=== PATIENT | male | born 1970 | race Caucasian/White ===

== ENCOUNTER 2022-10-19 02:30 | Emergency (ER) | payer OTHER, SELFPAY ==
[2022-10-19] VITALS (8 sets, daily range): BP systolic 141–172; BP diastolic 83–99; PULSE 73–98; RESP 18–20; TEMP 36.4; O2SAT 93–97
--- NOTE | 2022-10-19 03:16 | ED_ITS ---
HPI - SOB/Dyspnea General Time Seen by Provider: 03:16 Date Seen: 10/19/22 Chief Complaint: Shortness of Breath/Dyspnea Stated Complaint: pneumonia + shortness of breath Time Seen by Provider: 10/19/22 03:16 Source: patient, family, RN notes reviewed and old records reviewed Mode of arrival: ambulatory Limitations: no limitations History of Present Illness HPI Narrative: Red is a very pleasant 51-year-old gentleman with a history of hyperlipidemia, hypertension and to type 2 diabetes who comes to the emergency room for worsening symptoms. Patient initially seen on October 16 at [facility] with sore throat, runny nose and a cough. He was in day 7 of symptoms that he described as a cold. Two days prior to being seen he had increasing symptoms and not feeling well. He had expected to be diagnosed with strep throat when seen at urgent care but strep and COVID and influenza tests were negative. Patient was noted to have a clinical diagnosis of pneumonia placed on doxycycline and prednisone. He notes that he never had any improvement and last evening, approximately 8 hours ago began developing a fever up to 101. He had taken some Tylenol and ibuprofen-last dose of ibuprofen at approximately 2200 hours. He notes that he is feeling worse in terms of his breathing. He states that his sore throat now comes in goes. He notes he has not slept since starting the steroid. He has not used steroids in the past. He is stating that he is very shaky and now his stomach is also upset. He notes that he has had some chest pain in the past and always attributed this to ?a bad shoulder. He has been icing his shoulders. This is on both sides of his upper chest. He has a remote history of chest pain in 2009 but then successfully passed a stress test after that. Patient noted to be very active over the summer and has had a significant purposeful weight loss. He notes that COVID in August was something that has stopped him from being as active. He and his described 1 month of low- grade temperatures. Tonight patient denies history of DVT, calf tenderness, fluid retention, vomiting. He has had diarrhea. Related Data Previous Rx's Medication Instructions Recorded doxycycline hyclate 100 mg tablet 100 mg PO BID 5 days #10 tabs 10/16/22 prednisone 20 mg tablet 40 mg PO QDAY 5 days #10 tabs 01/06/23 Allergies Allergy/AdvReac Type Severity Reaction Status Date / Time No Known Drug Allergies Allergy Verified 10/16/22 13:19 Review of Systems Status of ROS: Reports: 10 or more systems reviewed and unremarkable except as noted in History and below Const: Reports: fever, chills and fatigue Eyes: Denies: change in vision ENMT: Reports: throat pain; Denies: neck pain, throat swelling or hoarseness Cardio: Reports: chest pain and shortness of breath with exertion; Denies: palpitations, edema or swelling of feet/ankles Resp: Reports: shortness of breath and cough; Denies: wheezing GI: Reports: abdominal pain, nausea and diarrhea; Denies: vomiting or blood in stool : Denies: painful urination or urinary frequency Musculo: Denies: neck pain Integ/Breast: Denies: rash Neuro: Denies: headache Psych: Reports: anxiety Endo: Reports: fatigue Allergy/Immuno: Denies: throat swelling or wheezing PFSH PFSH Social History Smoking Status: Never smoker Do you use any of these nicotine containing products: None Second hand tobacco smoke exposure: No How often do you have a drink containing alcohol: 2-3 times a week How many standard drinks containing alcohol do you have on a typical day: 1 or 2 How often do you have six or more drinks on one occasion: Never AUDIT-C Alcohol total score: 3 Non-prescribed substance use: denies use service: No Exam Narrative: Exam Narrative: Karen is alert and oriented. He is nontoxic in appearance. GCS 15. Eyes are clear. TMs bilaterally without erythema. Oral cavity visualized with no erythema or exudate in the posterior oropharynx. No lymphadenopathy noted. No trismus. Heart with a regular rate and rhythm. No additional heart sounds noted. Lungs are clear in all lung zhu although there may be decreased breath sounds in the right lower field. Abdomen is obese soft there is no tenderness or pulsating mass. Pedal pulses are intact and symmetrical. No calf tenderness unusual edema and Homans sign is negative. Skin is without evidence of rash. Dried skin that is flaking noted in external ear canal. Const: Vital Signs, click to edit/add: Vital Signs - 24 hr 10/19/22 02:38 10/19/22 02:45 10/19/22 03:30 Temperature 97.5 F L Pulse Rate [Left P ulse Oximeter] 98 97 79 Respiratory Rate 20 20 20 Blood Pressure [Le ft Upper Arm] 156/90 H Blood Pressure [Ri ght Upper Arm] 172/97 H 168/87 H Pulse Oximetry 97 97 95 Oxygen Delivery Me thod Room Air Room Air Room Air 10/19/22 04:00 10/19/22 05:00 10/19/22 05:30 Temperature Pulse Rate [Left P ulse Oximeter] 87 73 75 Respiratory Rate 20 20 18 Blood Pressure [Le ft Upper Arm] 142/83 H 148/94 H 148/90 H Blood Pressure [Ri ght Upper Arm] Pulse Oximetry 95 93 97 Oxygen Delivery Me thod Room Air Room Air Room Air Documenting provider has reviewed patient's vital signs: yes Course Course Hospital Course: Differential diagnosis includes but is not limited to drug reaction, influenza, COVID, RSV, other viral infection, pneumonia, PE, gastritis., acute coronary event, pericarditis. Patient will have IV placed, blood drawn with labs ordered to include CBC, comprehensive panel, CRP, D-dimer, troponin. Will get an EKG as well as chest x-ray. Patient will receive 500 mL normal saline, Toradol 15 mg IV, Ativan 0.5 mg IV. Reevaluation(s) Reevaluation #1: Patient noted to be feeling somewhat improved. We did see that sodium was 122 and patient did receive additional 500 mL of normal saline. We have also given him 50 mEq of p.o. potassium as well as Pedialyte. D-dimer significantly elevated greater than 1 and patient does agree to CT of the chest and abdomen. Vital Signs Vital signs: Initial Vital Signs Temperature 97.5 F L 10/19/22 02:38 Temperature Source Temporal Artery Scan 10/19/22 02:38 Pulse Rate 98 10/19/22 02:38 Pulse Rhythm 10/19/22 02:38 Respiratory Rate 20 10/19/22 02:38 Blood Pressure 172/97 H 10/19/22 02:38 Blood Pressure Mean 122 10/19/22 02:38 Blood Pressure Position Semi-Fowlers 10/19/22 02:38 Pulse Oximetry 97 10/19/22 02:38 Oxygen Delivery Method 10/19/22 02:38 Vital Signs Temperature 97.5 F L 10/19/22 02:38 Pulse Rate 98 10/19/22 02:38 Respiratory Rate 20 10/19/22 02:38 Blood Pressure 172/97 H 10/19/22 02:38 Pulse Oximetry 97 10/19/22 02:38 Oxygen Delivery Method 10/19/22 02:38 Temperature 97.5 F L 10/19/22 02:38 Pulse Rate 75 10/19/22 05:30 Respiratory Rate 18 10/19/22 05:30 Blood Pressure 148/90 H 10/19/22 05:30 Pulse Oximetry 97 10/19/22 05:30 Oxygen Delivery Method 10/19/22 05:30 MDM - SOB/Dyspnea MDM Narrative Medical decision making narrative: 1. RSV-no evidence of pneumonia. Patient is with appropriate oxygen saturations. This is likely the cause of fever and cough. Symptomatic cares at this time. Patient may discontinue doxycycline and prednisone. He had no evidence of wheezing on exam. 2. Hypokalemia -mild. 3.2. Will replace with 50 mEq of p.o. potassium. Recheck is 4.4. 3. Hyponatremia-moderate at 122. Patient reports pushing fluids over the past few days. I assume that this is an acute processes I have no other history noted in chart of hyponatremia. Patient given 1 L of normal saline. Patient given Pedialyte at this time. Recheck is 124. Certainly this is near needing hospitalization but patient has really no symptoms of this. This shaking he initially exhibited has resolved and he states he is feeling much better and blames his anxiety for feeling that way. He has no headache and has been able to drink without difficulty. At this point he is heading in the right direction. He will limit any free water, liberally salt his food, and use electrolyte juices. He will recheck his sodium tomorrow at the [facility]. If they are unable to do this for him he will return to the emergency room for recheck. 2. Chest pain-EKG and normal troponin x2 very reassuring. 3. Abdominal pain-no palpable abdominal pain on exam. I think this is likely attributable to doxycycline and or prednisone. 4. Disposition-home. Return for onset of new symptoms or worsening symptoms. Follow up at [facility] tomorrow for recheck of sodium. Follow-up on Wednesday as previously scheduled with Dr. Mooney. There is also the issue of portal hypertension with cirrhosis of the liver. Outpatient MRI is recommended for further evaluation. A copy of the patient's CT was sent with him. Medical Records Attestation: I reviewed the patient's medical records. Lab Data Attestation: I reviewed the patient's lab results. Labs: Lab Results 10/19/22 10/19/22 10/19/22 Range/Units 03:00 03:00 03:00 WBC 6.68 (4.50-11.00) K/uL RBC 4.71 (4.30-5.90) m/uL Hgb 12.6 L (13.5-17.5) gm/dL Hct 36.5 L (37.0-53.0) % MCV 78 L (80-100) fL MCH 27 (26-34) pg MCHC 35 (32-36) gm/dL RDW Coeff of [place] 15.8 H (11.5-15.5) % Plt Count 222 (140-440) K/uL Neut % (Auto) 61.3 (42.0-72.0) % Lymph % (Auto) 25.9 (20-44) % [place] % (Auto) 10.9 (0.0-11.0) % Eos % (Auto) 0.3 (0.0-7.0) % Baso % (Auto) 0.6 (0.0-3.0) % Neut # (Auto) 4.09 (1.7-7.0) K/uL Lymph # (Auto) 1.73 (0.90-2.90) K/uL [place] # (Auto) 0.70 (0.00-0.90) K/UL Eos # (Auto) 0.02 (0.00-0.50) K/uL Baso # (Auto) 0.04 (0.00-0.30) K/uL D-Dimer Quant (PE/DVT) 1.43 H (0.00-0.50) ug/ml Sodium 122 L* (135-149) mmol/L Potassium 3.2 L (3.6-5.1) mmol/L Chloride 86 L (96-114) mmol/L Carbon Dioxide 23 (20-32) mmol/L BUN 7 (5-24) mg/dL Creatinine 0.6 (0.5-1.5) mg/dL Estimated GFR 118 ml/min Glucose 165 H (60-115) mg/dL Calcium 8.8 (8.4-10.6) mg/dL Total Bilirubin 1.1 (0.1-1.5) mg/dL AST 115 H (12-35) U/L ALT 98 H (4-50) U/L Alkaline Phosphatase 90 (40-150) U/L Troponin I (0.01-0.04) ng/mL C-Reactive Protein < 0.5 L (0.5-1.0) mg/dL Total Protein 7.7 (6.0-8.3) g/dL Albumin 4.2 (3.3-5.0) g/dL SARS-CoV-2 (PCR) (Negative) Influenza Type A (PCR) (Negative) Influenza Type B (PCR) (Negative) RSV (PCR) (Negative) POC Troponin I (0.01-0.04) ng/ml 10/19/22 10/19/22 10/19/22 Range/Units 03:00 03:45 04:42 WBC (4.50-11.00) K/uL RBC (4.30-5.90) m/uL Hgb (13.5-17.5) gm/dL Hct (37.0-53.0) % MCV (80-100) fL MCH (26-34) pg MCHC (32-36) gm/dL RDW Coeff of Catr[place] (11.5-15.5) % Plt Count (140-440) K/uL Neut % (Auto) (42.0-72.0) % Lymph % (Auto) (20-44) % [place] % (Auto) (0.0-11.0) % Eos % (Auto) (0.0-7.0) % Baso % (Auto) (0.0-3.0) % Neut # (Auto) (1.7-7.0) K/uL Lymph # (Auto) (0.90-2.90) K/uL [place] # (Auto) (0.00-0.90) K/UL Eos # (Auto) (0.00-0.50) K/uL Baso # (Auto) (0.00-0.30) K/uL D-Dimer Quant (PE/DVT) (0.00-0.50) ug/ml Sodium (135-149) mmol/L Potassium (3.6-5.1) mmol/L Chloride (96-114) mmol/L Carbon Dioxide (20-32) mmol/L BUN (5-24) mg/dL Creatinine (0.5-1.5) mg/dL Estimated GFR ml/min Glucose (60-115) mg/dL Calcium (8.4-10.6) mg/dL Total Bilirubin (0.1-1.5) mg/dL AST (12-35) U/L ALT (4-50) U/L Alkaline Phosphatase (40-150) U/L Troponin I < 0.01 L (0.01-0.04) ng/mL C-Reactive Protein (0.5-1.0) mg/dL Total Protein (6.0-8.3) g/dL Albumin (3.3-5.0) g/dL SARS-CoV-2 (PCR) Negative SARS-CoV-2 (Negative) Influenza Type A (PCR) Negative PCR FLU A (Negative) Influenza Type B (PCR) Negative PCR FLU B (Negative) RSV (PCR) POSITIVE PCR RSV A (Negative) POC Troponin I 0.01 (0.01-0.04) ng/ml 10/19/22 Range/Units 07:07 WBC (4.50-11.00) K/uL RBC (4.30-5.90) m/uL Hgb (13.5-17.5) gm/dL Hct (37.0-53.0) % MCV (80-100) fL MCH (26-34) pg MCHC (32-36) gm/dL RDW Coeff of Catr[place] (11.5-15.5) % Plt Count (140-440) K/uL Neut % (Auto) (42.0-72.0) % Lymph % (Auto) (20-44) % [place] % (Auto) (0.0-11.0) % Eos % (Auto) (0.0-7.0) % Baso % (Auto) (0.0-3.0) % Neut # (Auto) (1.7-7.0) K/uL Lymph # (Auto) (0.90-2.90) K/uL [place] # (Auto) (0.00-0.90) K/UL Eos # (Auto) (0.00-0.50) K/uL Baso # (Auto) (0.00-0.30) K/uL D-Dimer Quant (PE/DVT) (0.00-0.50) ug/ml Sodium 124 L* (135-149) mmol/L Potassium 4.4 (3.6-5.1) mmol/L Chloride 88 L (96-114) mmol/L Carbon Dioxide 28 (20-32) mmol/L BUN 7 (5-24) mg/dL Creatinine 0.6 (0.5-1.5) mg/dL Estimated GFR 118 ml/min Glucose 184 H (60-115) mg/dL Calcium 8.5 (8.4-10.6) mg/dL Total Bilirubin (0.1-1.5) mg/dL AST (12-35) U/L ALT (4-50) U/L Alkaline Phosphatase (40-150) U/L Troponin I (0.01-0.04) ng/mL C-Reactive Protein (0.5-1.0) mg/dL Total Protein (6.0-8.3) g/dL Albumin (3.3-5.0) g/dL SARS-CoV-2 (PCR) (Negative) Influenza Type A (PCR) (Negative) Influenza Type B (PCR) (Negative) RSV (PCR) (Negative) POC Troponin I (0.01-0.04) ng/ml Imaging Data Chest x-ray: Attestation: I have reviewed the pertinent imaging results. My impression: No obvious infiltrates. Radiologist's impression: No focal consolidation, pleural effusion, or pneumothorax. Minimal left basilar atelectasis. Normal heart size and pulmonary vascularity. The bones are unr emarkable. IMPRESSION: No acute cardiopulmonary findings. CT Chest/Ab/Pelvis: Attestation: I have reviewed the pertinent imaging results. Radiologist's impression: Normal heart size. Normal caliber thoracic aorta and central pulmonary arteries. Coronary artery calcifications. Negative for acute pulmonary embolism. No pericardial effusion. Few mildly prominent right paratracheal lymph nodes. The thyroid gland is normal in appearance. No focal consolidation, pleural effusion, or pneumothorax. Mild left basilar atelectasis. Calcified granulomas along the left major fissure and in the posteromedial left lower lobe. No other pulmonary nodules identified. No central endobronchial lesion or bronchial wall thickening. Please see separate report for discussion of the abdomen. Hemangioma in the T7 vertebral body with minimal anterior wedging. IMPRESSION: 1. Negative for acute pulmonary embolism. 2. No other acute findings in the chest.Nodular contour of the liver compatible with cirrhosis. Diffuse hepatic steatosis. There are multiple small low-attenuation lesions throughout the liver which are too small to characterize. Tiny recanalized umbilical vein and upper abdominal varices. The spleen is enlarged measuring 14.5 cm in AP dimension. The gallbladder, pancreas, and adrenal glands are negative. No biliary dilation. Hepatic and portal veins are patent. Symmetric enhancement of the kidneys. No hydronephrosis or ureteral dilation. No obstructing urinary calculi identified. Mildly distended urinary bladder. Nonenlarged prostate gland. No evidence of bowel obstruction. Colonic diverticulosis. There appears to be mild wall thickening throughout the sigmoid colon with pericolonic inflammatory fat stranding. Findings could represent a nonspecific colitis. No definite focal diverticulitis. Negative appendix. No intraperitoneal free air or fluid. Small fat containing umbilical hernia. Multiple small gastrohepatic and periaortic lymph nodes. Mildly prominent yosi hepatis lymph nodes. Left convex lumbar curve. Mild degenerative changes of the spine. Bilateral L5 pars interarticularis defects without spondylolisthesis. Partially visualized hemangioma in the T7 vertebral body. Tiny sclerotic lesion in the posterior right iliac bone is likely a bone island. Mild left basilar atelectasis. IMPRESSION: 1. Findings suggestive of a nonspecific colitis involving the sigmoid colon. No definite focal diverticulitis. 2. Cirrhotic configuration of the liver with diffuse hepatic steatosis. Multiple small low-attenuation liver lesions are too small to characterize. These could be further evaluated with nonemergent contrast-enhanced MRI. 3. Findings of portal hypertension including splenomegaly, tiny recanalized umbilical vein, and upper abdominal varices. ECG Data Attestation: I personally reviewed and interpreted this ECG as follows: ECG interpretation date: 10/19/22 Interpretation: EKG 1. By my read shows normal sinus rhythm at a rate of 86. No acute ST or T- wave changes are noted. Discharge Plan Discharge Clinical Impression: Colitis, RSV infection, Acute hyponatremia, Acute hypokalemia Patient Disposition: Home, Self-Care Condition: Improved Instructions: Respiratory Syncytial Virus (ED), Potassium Content of Foods List (ED), Hyponatremia (ED), Hypokalemia (ED), Colitis (ED) Additional Instructions: 1. Low-sodium: Your sodium went from 122-124. You will need to limit plain water and instead use Gatorade/Powerade or Pedialyte to drink. You may salt her foods liberally. Recheck sodium tomorrow at your clinic. If you are unable to do that you will need to return to the emergency room for recheck. 2. Low potassium: Her potassium went from 3.2-4.4 which is now normal. 3. Colitis: I believe this is likely viral induced. At this time you may use ibuprofen as needed for discomfort. Oxycodone may be used for pain not relieved by ibuprofen. This is an addictive narcotic and therefore use sparingly. Start with a half a tab to see if this helps with the discomfort. 4. RSV: There is no evidence of pneumonia on CT. No evidence of pulmonary embolism. You should start noting improvement over the next 48 hours. Return to the emergency room for worsening symptoms especially difficulty b reathing, blood in your stool, increasing pain and as needed. Follow-up on Wednesday as per scheduled. Please take a copy of your CT with. Your doctor will need to schedule an MRI of the liver on an outpatient basis. Prescriptions: No Action doxycycline hyclate 100 mg tablet 100 mg PO BID 5 Days Qty: 10 0RF prednisone 20 mg tablet 40 mg PO QDAY 5 Days Qty: 10 0RF Follow Up/Referrals: Jose Mooney MD [Primary Care Provider] - Stand Alone Forms: [employer] Instructions
--- NOTE | 2022-10-19 03:33 | CRLHL7_ITS ---
For Patients: As a result of the Century Cures Act, medical imaging exams and procedure reports are released immediately into your electronic medical record. You may view this report before your referring provider. If you have questions, please contact your health care provider. INDICATION: Cough, fever. TECHNIQUE: Chest 1 view. COMPARISON: None. FINDINGS: No focal consolidation, pleural effusion, or pneumothorax. Minimal left basilar atelectasis. Normal heart size and pulmonary vascularity. The bones are unremarkable. IMPRESSION: No acute cardiopulmonary findings. Dictated by Akiko Delgado MD @ 10/19/2022 5:07:08 AM (Electronically Signed)
[2022-10-19] MEDS: 0.9 % SODIUM CHLORIDE 500 ML 500 ML IV ×2 (03:45→04:27)
[2022-10-19] MEDS: KETOROLAC 15 MG/ML inj IVP (03:45)
[2022-10-19] MEDS: LORazepam 2 MG/ML inj 0.5 MG IVP (03:50)
[2022-10-19 03:51] LABS: Basophils Absolute Auto 0.04 K/uL (0.00-0.30); Basophils Percent Auto 0.6 % (0.0-3.0); Eosinophils Absolute Auto 0.02 K/uL (0.00-0.50); Eosinophils Percent Auto 0.3 % (0.0-7.0); Hematocrit 36.5 % (37.0-53.0); Hemoglobin* 12.6 gm/dL (13.5-17.5); Immature Granulocytes Abs Auto 0.07 K/uL (0.00-0.30); Lymphocytes Absolute Auto 1.73 K/uL (0.90-2.90); Lymphocytes Percent Auto 25.9 % (20-44); Mean Corpuscular HGB Conc 35 gm/dL (32-36); Mean Corpuscular Hemoglobin 27 pg (26-34); Mean Corpuscular Volume 78 fL (80-100); Monocytes Percent Auto 10.9 % (0.0-11.0); Neutrophils Absolute Auto 4.09 K/uL (1.7-7.0); Neutrophils Percent Auto 61.3 % (42.0-72.0); Platelet Count* 222 K/uL (140-440); RDW Coefficient of Variation % 15.8 % (11.5-15.5); Red Blood Count 4.71 m/uL (4.30-5.90); White Blood Count* 6.68 K/uL (4.50-11.00)
[2022-10-19 03:53] LABS: Slide Review Reflex No
[2022-10-19 04:01] LABS: Albumin* 4.2 g/dL (3.3-5.0); Chloride* 86 mmol/L (96-114)
[2022-10-19 04:02] LABS: Potassium* 3.2 mmol/L (3.6-5.1)
[2022-10-19 04:03] LABS: Creatinine* 0.6 mg/dL (0.5-1.5); Estimated Glomerular Filt Rate 118 ml/min
[2022-10-19 04:04] LABS: Alanine Aminotransferase* 98 U/L (4-50); Alkaline Phosphatase* 90 U/L (40-150); Aspartate Amino Transferase* 115 U/L (12-35); Bilirubin Total* 1.1 mg/dL (0.1-1.5); Blood Urea Nitrogen* 7 mg/dL (5-24); Carbon Dioxide* 23 mmol/L (20-32); Total Protein* 7.7 g/dL (6.0-8.3)
[2022-10-19 04:05] LABS: Calcium* 8.8 mg/dL (8.4-10.6); Glucose* 165 mg/dL (60-115)
[2022-10-19 04:07] LABS: D Dimer Quantitative* 1.43 ug/ml (0.00-0.50)
[2022-10-19 04:08] LABS: C Reactive Protein* < 0.5 mg/dL (0.5-1.0)
[2022-10-19 04:09] LABS: Sodium* 122 mmol/L (135-149)
--- NOTE | 2022-10-19 04:17 | CRLHL7_ITS ---
For Patients: As a result of the Century Cures Act, medical imaging exams and procedure reports are released immediately into your electronic medical record. You may view this report before your referring provider. If you have questions, please contact your health care provider. INDICATION: Elevated D-dimer, chest/abdomen pain. COMPARISON: Chest radiograph 10/19/2022. TECHNIQUE: CT of the chest with 100 cc of Isovue 370 IV contrast. Coronal and sagittal reconstructions. 3D post processing was performed. FINDINGS: Normal heart size. Normal caliber thoracic aorta and central pulmonary arteries. Coronary artery calcifications. Negative for acute pulmonary embolism. No pericardial effusion. Few mildly prominent right paratracheal lymph nodes. The thyroid gland is normal in appearance. No focal consolidation, pleural effusion, or pneumothorax. Mild left basilar atelectasis. Calcified granulomas along the left major fissure and in the posteromedial left lower lobe. No other pulmonary nodules identified. No central endobronchial lesion or bronchial wall thickening. Please see separate report for discussion of the abdomen. Hemangioma in the T7 vertebral body with minimal anterior wedging. IMPRESSION: 1. Negative for acute pulmonary embolism. 2. No other acute findings in the chest. Please note that all CT scans at this facility use dose modulation, iterative reconstruction, and/or weight-based dosing when appropriate to reduce radiation dose to as low as reasonably achievable. Dictated by Akiko Deglado MD @ 10/19/2022 5:54:25 AM (Electronically Signed)
--- NOTE | 2022-10-19 04:21 | CRLHL7_ITS ---
For Patients: As a result of the 21st Century Cures Act, medical imaging exams and procedure reports are released immediately into your electronic medical record. You may view this report before your referring provider. If you have questions, please contact your health care provider. INDICATION: Elevated D-dimer, chest/abdomen pain. TECHNIQUE: CT of the abdomen and pelvis with 100 cc Isovue 370 IV contrast. Coronal and sagittal reconstructions. COMPARISON: None. FINDINGS: Nodular contour of the liver compatible with cirrhosis. Diffuse hepatic steatosis. There are multiple small low-attenuation lesions throughout the liver which are too small to characterize. Tiny recanalized umbilical vein and upper abdominal varices. The spleen is enlarged measuring 14.5 cm in AP dimension. The gallbladder, pancreas, and adrenal glands are negative. No biliary dilation. Hepatic and portal veins are patent. Symmetric enhancement of the kidneys. No hydronephrosis or ureteral dilation. No obstructing urinary calculi identified. Mildly distended urinary bladder. Nonenlarged prostate gland. No evidence of bowel obstruction. Colonic diverticulosis. There appears to be mild wall thickening throughout the sigmoid colon with pericolonic inflammatory fat stranding. Findings could represent a nonspecific colitis. No definite focal diverticulitis. Negative appendix. No intraperitoneal free air or fluid. Small fat containing umbilical hernia. Multiple small gastrohepatic and periaortic lymph nodes. Mildly prominent yosi hepatis lymph nodes. Left convex lumbar curve. Mild degenerative changes of the spine. Bilateral L5 pars interarticularis defects without spondylolisthesis. Partially visualized hemangioma in the T7 vertebral body. Tiny sclerotic lesion in the posterior right iliac bone is likely a bone island. Mild left basilar atelectasis. IMPRESSION: 1. Findings suggestive of a nonspecific colitis involving the sigmoid colon. No definite focal diverticulitis. 2. Cirrhotic configuration of the liver with diffuse hepatic steatosis. Multiple small low-attenuation liver lesions are too small to characterize. These could be further evaluated with nonemergent contrast-enhanced MRI. 3. Findings of portal hypertension including splenomegaly, tiny recanalized umbilical vein, and upper abdominal varices. Please note that all CT scans at this facility use dose modulation, iterative reconstruction, and/or weight-based dosing when appropriate to reduce radiation dose to as low as reasonably achievable. Dictated by Akiko Delgado MD @ 10/19/2022 6:09:09 AM (Electronically Signed)
[2022-10-19 04:22] LABS: Troponin I* < 0.01 ng/mL (0.01-0.04)
[2022-10-19 04:32] LABS: PCR FLU A Negative PCR FLU A (Negative); PCR FLU B Negative PCR FLU B (Negative); PCR RSV POSITIVE PCR RSV (Negative)
[2022-10-19 05:06] LABS: SARS PCR* Negative SARS-CoV-2 (Negative)
[2022-10-19 05:27] LABS: Troponin, Point-of-Care* 0.01 ng/ml (0.01-0.04)
[2022-10-19] MEDS: ELECTROLYTES/DEXTROSE ORAL SOL 1,000 ML 1014 ML PO (05:53)
[2022-10-19] MEDS: POTASSIUM BICARB 25 MEQ EFFERVESCENT TAB 50 MEQ PO (05:53)
[2022-10-19 07:26] LABS: Chloride* 88 mmol/L (96-114); Potassium* 4.4 mmol/L (3.6-5.1)
[2022-10-19 07:29] LABS: Blood Urea Nitrogen* 7 mg/dL (5-24); Carbon Dioxide* 28 mmol/L (20-32); Creatinine* 0.6 mg/dL (0.5-1.5); Estimated Glomerular Filt Rate 118 ml/min
[2022-10-19 07:30] LABS: Calcium* 8.5 mg/dL (8.4-10.6); Glucose* 184 mg/dL (60-115)
[2022-10-19 07:34] LABS: Sodium* 124 mmol/L (135-149)
--- NOTE | 2022-10-19 07:39 | ED.NURSE ---
patient is having difficulty sleeping and will fell asleep for a minute and then wakes self up. wondering about taking something for sleep.
== END 2022-10-19 08:29 | disposition home or self-care (01) ==
PROVIDERS: Emergency Provider Family Medicine; PCP Family Medicine
DX: K52.9 Noninfective gastroenteritis and colitis, unspecified (principal); B97.4 Respiratory syncytial virus as the cause of diseases classified elsewhere; E87.6 Hypokalemia; R07.89 Other chest pain
CPT/HCPCS: 36415; 71045; 71260; 74177; 80048; 80053; 84484; 85025; 85379; 86140; 87502; 87634; 87635; 93005; 94761; 96374; 96375; 99285; A9270; J1885; J2060; J7120; Q9967